=== PATIENT | female | born 1975 | race Two or more races ===

== ENCOUNTER 2021-02-20 22:56 | Emergency (ER) | payer MEDICAID, OTHER ==
[~2021-02-20] VITALS: Ht 162.6 cm; Wt 72.6 kg
[2021-02-21] MEDS ORDERED: KETOROLAC TROMETH 60MG/2ML VIAL IM ONE (02:00)
[2021-02-21 03:06] VITALS: BP 106/99
== END 2021-02-21 02:30 | disposition home or self-care (01) ==
LOC: ER 22:56 → EDBD 22:56 → ER 02-21 02:30
DX: S02.31XA Fracture of orbital floor, right side, initial encounter for closed fracture (principal); S20.212A Contusion of left front wall of thorax, initial encounter; R60.0 Localized edema; W11.XXXA Fall on and from ladder, initial encounter; Y93.89 Activity, other specified; Y92.89 Other specified places as the place of occurrence of the external cause; Y99.8 Other external cause status
CPT/HCPCS: 70486; 71250; 93005; 96372; 99284; J1885

== ENCOUNTER 2022-03-07 14:51 | Emergency (ER) | payer MEDICAID ==
[~2022-03-07] VITALS: Ht 157.5 cm; Wt 71.3 kg
[2022-03-07 15:33] LABS: Basophils # (auto) 0.1 10 ^3/uL (0-0.2); Basophils % (auto) 1.2 % (0.0-2.0); Eosinophils # (auto) 0.2 10 ^3/uL (0-0.8); Eosinophils % (auto) 4.3 % (0.0-7.0); Hematocrit 40.5 % (36.0-46.0); Hemoglobin 13.2 g/dL (12.2-16.2); Lymphocytes # (auto) 2.1 10 ^3/uL (0.4-5.4); Lymphocytes % (auto) 36.8 % (10.0-50.0); Mean Corpuscular Hemoglobin 28.2 pg (28.0-32.0); Mean Corpuscular Hgb Conc. 32.7 g/dL (32.0-36.0); Mean Corpuscular Volume 86.3 fL (80.0-100.0); Monocytes # (auto) 0.5 10 ^3/uL (0-1.3); Monocytes % (auto) 9.3 % (0.0-12.0); Neutrophils # (auto) 2.7 10 ^3/uL (1.6-8.6); Neutrophils % (auto) 48.4 % (37.0-80.0); Nucleated Red Blood Cells % 0.1 %; Red Blood Cells 4.69 10^6/uL (4.0-5.20); Red Cell Distribution Width 14.8 % (11.8-14.3); White Blood Cell 5.7 10^3/uL (4.4-10.8)
[2022-03-07 15:48] LABS: Calcium 9.7 mg/dL (8.5-10.1); Potassium 4.1 mmol/L (3.5-5.1)
[2022-03-07 15:50] LABS: BUN/Creatinine Ratio 13.8
[2022-03-07 15:53] LABS: Bilirubin, Total 0.8 mg/dL (0.2-1.0); Total Protein 7.5 g/dL (6.4-8.2)
[2022-03-07] MEDS ORDERED: KETOROLAC TROMETH 60MG/2ML VIAL IM ONE ×2 (16:00→18:45)
[2022-03-07] MEDS ORDERED: CYCL-837 PO (17:18)
[2022-03-07] MEDS ORDERED: DICL50TA2 PO (17:18)
[2022-03-07 18:56] VITALS: BP 137/85
== END 2022-03-07 18:59 | disposition home or self-care (01) ==
LOC: ER 14:51
DX: R07.89 Other chest pain (principal)
CPT/HCPCS: 36415; 71046; 80053; 84484; 85025; 93005